=== PATIENT | female | born 1995 | race Caucasian/White ===

== ENCOUNTER → 2017-05-07 | Outpatient (REF) | LOC: ZLAB.WCH 19:03 | DX: Z01.89 Encounter for other specified special examinations (principal) ==

== ENCOUNTER 2018-10-17 08:47 | Emergency (ER) | payer OTHER, BC ==
[~2018-10-17] VITALS: Ht 154.9 cm; Wt 60.0 kg
[2018-10-17 09:34] LABS: COLLECTION METHOD CLEAN CATCH
[2018-10-17 09:41] LABS: PH 8 (5-8); SQUAMOUS EPITHELIAL 0-2 /hpf; URINE APPEARANCE Clear; URINE BACTERIA None Seen /hpf; URINE BILIRUBIN Negative (NEGATIVE); URINE BLOOD Negative (NEGATIVE); URINE COLOR Yellow; URINE GLUCOSE Negative (NEGATIVE); URINE KETONE Negative (NEGATIVE); URINE LEUKOCYTE ESTERASE Negative (NEGATIVE); URINE NITRATE Negative (NEGATIVE); URINE PROTEIN(semi-quant) Negative (NEGATIVE); URINE RBC 0-2 /hpf; URINE UROBILINOGEN Negative (NEGATIVE)
[2018-10-17 10:28] VITALS: BP 121/69; PULSE 92; TEMP 98.2
== END 2018-10-17 10:36 | disposition home or self-care (01) ==
LOC: COL.ER 08:47
PROVIDERS: Family Medicine
DX: Z04.1 Encounter for examination and observation following transport accident (principal); Z3A.10 10 weeks gestation of pregnancy; V43.52XA Car driver injured in collision with other type car in traffic accident, initial encounter

== ENCOUNTER 2019-05-15 18:06 | Outpatient (CLI) | payer BC ==
[~2019-05-15] VITALS: Ht 157.5 cm; Wt 77.7 kg
--- NOTE | 2019-05-15 18:00 | NUR ---
G1 at 38.3 weeks gestation to L&D with c/o contractions. Patient reports good movement. Denies leaking of fluid or vaginal bleeding. Patient changed into gown and wedged to left side in bed. EFMs explained and applied. FHR 140 bpm and reactive. CTX q4-5 minutes per toco. VSS. SVE /-3. Plan of care reviewed.
[2019-05-15 18:25] VITALS: BP 125/79; PULSE 96; TEMP 97.7
[2019-05-15 18:30] VITALS: BP 125/79; PULSE 96; TEMP 97.9
[2019-05-15] MEDS ORDERED: PRENATAL 191 TAB PO (18:31)
== END 2019-05-15 19:28 | disposition home or self-care (01) ==
LOC: LDRO 18:06
DX: O62.9 Abnormality of forces of labor, unspecified (principal); Z3A.38 38 weeks gestation of pregnancy

== ENCOUNTER 2019-05-16 17:45 | Outpatient (CLI) | payer BC ==
[~2019-05-16] VITALS: Ht 157.5 cm; Wt 77.7 kg
--- NOTE | 2019-05-16 17:40 | NUR ---
Pt arrives on unit ambulatory. Changed into a clean gown. EFM and toco applied. VSS. See physician notification. 1802-Reactive FHR strip obtained. Labor precautions given. Pt verbalizes understanding. Leaves unit ambulatory.
[~2019-05-16 17:45] MED LIST: PRENATAL 191 TAB PO
[2019-05-16 18:02] VITALS: BP 120/73; PULSE 80; TEMP 98
== END 2019-05-16 18:05 | disposition home or self-care (01) ==
LOC: LDR 17:45 → LDRO 17:45
DX: Z34.93 Encounter for supervision of normal pregnancy, unspecified, third trimester (principal); Z3A.38 38 weeks gestation of pregnancy
CPT/HCPCS: OP

== ENCOUNTER 2019-05-30 06:31 | Inpatient (IN) | payer BC ==
[~2019-05-30] VITALS: Ht 188 cm; Wt 80.0 kg
[2019-05-30 19:25] VITALS: BP 123/74; PULSE 83; TEMP 99.4
[2019-05-30 19:30] VITALS: BP 123/74; PULSE 83; TEMP 99.4
[2019-05-30 20:46] VITALS: TEMP 98.7
[2019-05-30 21:14] LABS: BASO % 0.3 % (0.0-2.0); EOS # 0.1 (0.0-0.7); EOS % 0.6 % (0-4.0); GRAN # 11.3 (1.4-6.5); GRAN % 74.8 % (42.2-75.2); HEMATOCRIT 37.7 % (37.0-47.0); HEMOGLOBIN 12.5 g/dl (12.5-16.0); LYMPH # 2.4 (1.2-3.4); LYMPH % 15.6 % (20.0-51.0); MEAN CELL VOLUME 99 fl (80.0-100.0); MEAN CORPUSCULAR HEMOGLOBIN 33 pg (27.0-31.0); MEAN CORPUSCULAR HGB CONC 33 g/dl (33.0-37.0); MEAN PLATELET VOLUME 10.9 fl (7.4-10.4); MONO # 1.2 (0.1-0.6); MONO % 7.9 % (1.7-9.3); PLATELET COUNT 190 K/mm3 (130-400); RED BLOOD COUNT 3.82 M/mm3 (4.10-5.30); REDCELL DISTRIBUTION WIDTH-CV 12.5 % (11.5-14.5)
[2019-05-30 21:45] VITALS: BP 115/60; PULSE 82; TEMP 98.2
[2019-05-30 22:54] VITALS: BP 134/73; PULSE 74; TEMP 98.2
[2019-05-31] VITALS (67 sets, daily range): BP systolic 94–150; BP diastolic 52–97; PULSE 63–126; TEMP 97.8–99.7
[2019-06-01] VITALS: BP 124/71; PULSE 84; TEMP 99
[2019-06-01 04:00] VITALS: BP 121/74; PULSE 92; TEMP 98.9
[2019-06-01 08:00] VITALS: BP 101/66; PULSE 98; TEMP 98.6
[2019-06-01] MEDS ORDERED: IBU600 MG PO (09:16)
[2019-06-01] MEDS ORDERED: PERCOCET 325 MG1 TA2 PO (09:16)
[2019-06-01 12:05] VITALS: BP 124/77; PULSE 85; TEMP 97.4
[2019-06-01 16:00] VITALS: BP 121/70; PULSE 84; TEMP 98.4
[2019-06-01 21:08] VITALS: BP 118/68; PULSE 83; TEMP 98.2
[2019-06-02 04:20] VITALS: BP 122/66; PULSE 118; TEMP 97.6
[2019-06-02 09:10] VITALS: BP 131/78; PULSE 110; TEMP 98.6
[2019-06-02 16:55] VITALS: BP 122/71; PULSE 99; TEMP 98.6
[2019-06-02 20:30] VITALS: BP 130/66; PULSE 100; TEMP 98.4
[2019-06-03 08:33] VITALS: BP 114/82; PULSE 94; TEMP 98.2
[2019-06-03 16:55] VITALS: BP 121/66; PULSE 97
[2019-06-03 20:00] VITALS: BP 119/70; PULSE 100; TEMP 99.1
[2019-06-04 07:15] VITALS: BP 115/74; PULSE 80; TEMP 98
[2019-06-04 17:00] VITALS: BP 116/68; PULSE 96; TEMP 98.6
== END 2019-06-04 18:40 | disposition home or self-care (01) | DRG 788 ==
LOC: LDR 06:31 → OB 05-31 21:00
PROVIDERS: ADMIT Obstetrics & Gynecology
PROC: 3E0P7VZ Introduction of Hormone into Female Reproductive, Via Natural or Artificial Opening (ICD-10-PCS; 2019-05-30)
PROC: 3E033VJ Introduction of Other Hormone into Peripheral Vein, Percutaneous Approach (ICD-10-PCS; 2019-05-30)
PROC: 10D00Z1 Extraction of Products of Conception, Low, Open Approach (ICD-10-PCS; principal; 2019-05-31)
DX: O62.1 Secondary uterine inertia (principal); O77.0 Labor and delivery complicated by meconium in amniotic fluid; O48.0 Post-term pregnancy; Z3A.40 40 weeks gestation of pregnancy; Z37.0 Single live birth
CPT/HCPCS: J0690; J1885; J2210; J2250; J2270; J2370; J2400; J2405; J2590; J2704; J3010; J7120